=== PATIENT | female | born 1955 | race Two or more races ===

== ENCOUNTER 2022-05-15 14:43 | Emergency (ER) | payer BC ==
[~2022-05-15] VITALS: Ht 154.9 cm; Wt 65.9 kg
[2022-05-15 15:00] VITALS: BP 160/94
--- NOTE | 2022-05-15 16:05 | NUR ---
Patient left lobby after asking registration if she would be able to make her doctors appointment soon. I told registration to let the patient know that we probably wouldn't be able to see her before her appointment even if she got back to a room in the next 10 min due to potential for moderate sedation. Andrea called back and stated patient left.
== END 2022-05-15 18:21 | disposition left against medical advice (07) ==
LOC: ER 14:43
DX: M25.532 Pain in left wrist (principal); Z53.21 Procedure and treatment not carried out due to patient leaving prior to being seen by health care provider